=== PATIENT | male | born 1985 | race Native Hawaiian/Other Pacific Islander ===

== ENCOUNTER 2016-11-26 08:02 | Outpatient (CLI) | payer OTHER ==
[2016-11-26 08:30] LABS: POTASSIUM 4.1 mmol/L (3.6-5.2)
[2016-11-26 08:59] LABS: PLATELET COUNT 157 K/uL (142-355)
== END 2016-11-26 19:29 | disposition home or self-care (01) ==
LOC: LABW 08:02
PROVIDERS: Internal Medicine Nephrology
DX: I12.9 Hypertensive chronic kidney disease with stage 1 through stage 4 chronic kidney disease, or unspecified chronic kidney disease (principal); N18.3 Chronic kidney disease, stage 3 (moderate); N25.81 Secondary hyperparathyroidism of renal origin
CPT/HCPCS: 36415; 80053; 81000; 82306; 82570; 83970; 84100; 84155; 85027

== ENCOUNTER 2017-01-07 13:25 | Emergency (ER) | payer OTHER ==
[~2017-01-07] VITALS: Ht 172.7 cm; Wt 68.0 kg
[2017-01-07 14:29] VITALS: BP 149/75; TEMP 98.1
== END 2017-01-07 14:32 | disposition home or self-care (01) ==
LOC: ED 13:25
DX: L29.8 Other pruritus (principal); T36.1X5A Adverse effect of cephalosporins and other beta-lactam antibiotics, initial encounter; Y92.89 Other specified places as the place of occurrence of the external cause; X58.XXXA Exposure to other specified factors, initial encounter; Y93.89 Activity, other specified
CPT/HCPCS: 36415; 96374; 96375; 99284; J1200; J2780; J2930

== ENCOUNTER 2017-04-20 10:04 | Outpatient (CLI) | payer OTHER | END 2017-04-20 11:05 | disposition home or self-care (01) | LOC: RESP 10:04 | DX: R01.1 Cardiac murmur, unspecified (principal); I10 Essential (primary) hypertension; R94.31 Abnormal electrocardiogram [ECG] [EKG] | CPT/HCPCS: 93306 ==

== ENCOUNTER 2017-04-26 07:36 | Outpatient (CLI) | payer OTHER ==
[2017-04-26 08:07] LABS: PLATELET COUNT 150 K/uL (142-355)
[2017-04-26 08:14] LABS: POTASSIUM 4.4 mmol/L (3.6-5.2)
== END 2017-04-26 08:40 | disposition home or self-care (01) ==
LOC: LABW 07:36
PROVIDERS: Internal Medicine Nephrology
DX: I12.9 Hypertensive chronic kidney disease with stage 1 through stage 4 chronic kidney disease, or unspecified chronic kidney disease (principal); N18.3 Chronic kidney disease, stage 3 (moderate); E78.4 Other hyperlipidemia
CPT/HCPCS: 36415; 80053; 80061; 82570; 84155; 85027

== ENCOUNTER 2017-06-17 09:11 | Outpatient (CLI) | payer OTHER ==
[2017-06-17 09:28] LABS: PLATELET COUNT 146 K/uL (142-355)
[2017-06-17 09:38] LABS: POTASSIUM 4.6 mmol/L (3.6-5.2)
== END 2017-06-17 21:52 | disposition home or self-care (01) ==
LOC: LABW 09:11
PROVIDERS: Specialist
DX: Z01.810 Encounter for preprocedural cardiovascular examination (principal)
CPT/HCPCS: 36415; 80053; 85027

== ENCOUNTER 2017-08-24 08:21 | Outpatient (CLI) | payer OTHER ==
[2017-08-24 08:34] LABS: PLATELET COUNT 164 K/uL (142-355)
[2017-08-24 08:44] LABS: POTASSIUM 4.6 mmol/L (3.6-5.2)
== END 2017-08-24 19:07 | disposition home or self-care (01) ==
LOC: LABW 08:21
PROVIDERS: Internal Medicine Nephrology
DX: E11.65 Type 2 diabetes mellitus with hyperglycemia (principal); N18.3 Chronic kidney disease, stage 3 (moderate); I12.9 Hypertensive chronic kidney disease with stage 1 through stage 4 chronic kidney disease, or unspecified chronic kidney disease
CPT/HCPCS: 36415; 80053; 82570; 84155; 85027

== ENCOUNTER 2017-08-25 14:14 | Outpatient (CLI) | payer OTHER | END 2017-08-25 19:38 | disposition home or self-care (01) | LOC: RAD 14:14 | DX: M79.641 Pain in right hand (principal) ==

== ENCOUNTER 2017-12-25 09:14 | Inpatient (IN) | payer OTHER ==
[2017-12-25] VITALS (8 sets, daily range): BP systolic 126–156; BP diastolic 76–105; TEMP 98.1–98.2; Ht 162.6 cm; Wt 71.2 kg
[~2017-12-25] VITALS: Ht 162.6 cm; Wt 71.2 kg
[2017-12-25] MEDS ORDERED: LOVASTATIN20 MG OR (09:26)
[2017-12-25] MEDS ORDERED: COZAAR100 MG PO (09:26)
[2017-12-25] MEDS ORDERED: AMLODIPINE BESYLATE PO (09:27)
[2017-12-25] MEDS ORDERED: HUMALOG KW200 UNIT/M SC ×2 (09:28→09:29)
[2017-12-25] MEDS ORDERED: LANTUS100 MG/ML SC (09:30)
[2017-12-25 10:31] LABS: PLATELET COUNT 134 K/uL (142-355)
[2017-12-25 12:04] LABS: POTASSIUM 3.7 mmol/L (3.6-5.2)
[2017-12-25 23:21] LABS: POTASSIUM 4.3 mmol/L (3.6-5.2)
[2017-12-26] VITALS (8 sets, daily range): BP systolic 131–146; BP diastolic 42–93; TEMP 98–98.6
[2017-12-26 03:47] LABS: POTASSIUM 4.8 mmol/L (3.6-5.2)
[2017-12-26 06:45] LABS: PLATELET COUNT 130 K/uL (142-355)
[2017-12-26 06:59] LABS: POTASSIUM 3.9 mmol/L (3.6-5.2)
[2017-12-26 12:16] LABS: POTASSIUM 4.2 mmol/L (3.6-5.2)
[2017-12-27] VITALS: BP 114/70; TEMP 98.5
[2017-12-27 04:00] VITALS: BP 134/84; TEMP 97.9
[2017-12-27 06:37] LABS: PLATELET COUNT 136 K/uL (142-355)
[2017-12-27 06:48] LABS: POTASSIUM 3.7 mmol/L (3.6-5.2)
[2017-12-27 08:00] VITALS: BP 119/78; TEMP 98.3
[2017-12-27 12:00] VITALS: BP 137/82; TEMP 98.1
[2017-12-27 16:00] VITALS: BP 128/83; TEMP 98.2
[2017-12-27 20:00] VITALS: BP 139/94; TEMP 98.5
[2017-12-28] VITALS: BP 122/79; TEMP 98
[2017-12-28 04:00] VITALS: BP 124/82; TEMP 98.5
[2017-12-28 06:30] LABS: PLATELET COUNT 130 K/uL (142-355)
[2017-12-28 06:50] LABS: POTASSIUM 3.8 mmol/L (3.6-5.2)
[2017-12-28 08:00] VITALS: BP 151/95; TEMP 97.6
[2017-12-28 12:00] VITALS: BP 131/81; TEMP 98.3
== END 2017-12-28 15:40 | disposition home or self-care (01) | DRG 639 ==
LOC: ED 09:14 → MED/SURG 12:05 → ICU 12:05 → MED/SURG 12-26 14:00
DX: E10.10 Type 1 diabetes mellitus with ketoacidosis without coma (principal); R11.2 Nausea with vomiting, unspecified; E10.22 Type 1 diabetes mellitus with diabetic chronic kidney disease; N18.2 Chronic kidney disease, stage 2 (mild)
CPT/HCPCS: 36415; 74022; 80048; 80053; 81000; 81002; 82948; 83036; 83735; 84132; 84443; 85027; 96361; 96372; 96374; 96376; 99285; J1650; J1815; J2405; J3411; J3490

== ENCOUNTER 2018-03-03 08:28 | Outpatient (CLI) | payer OTHER ==
[~2018-03-03 08:28] MED LIST: AMLODIPINE BESYLATE PO; COZAAR100 MG PO; HUMALOG KW200 UNIT/M SC; LANTUS100 MG/ML SC; LOVASTATIN20 MG OR
[2018-03-03 09:00] LABS: PLATELET COUNT 147 K/uL (142-355)
[2018-03-03 09:43] LABS: POTASSIUM 4.4 mmol/L (3.6-5.2)
== END 2018-03-03 20:12 | disposition home or self-care (01) ==
LOC: LABW 08:28
PROVIDERS: Internal Medicine Nephrology
DX: N18.3 Chronic kidney disease, stage 3 (moderate) (principal)
CPT/HCPCS: 36415; 80053; 82570; 84155; 85027

== ENCOUNTER 2018-03-14 14:27 | Outpatient (CLI) | payer OTHER ==
[2018-03-14 14:46] LABS: PLATELET COUNT 163 K/uL (142-355)
[2018-03-14 15:30] LABS: POTASSIUM 4.7 mmol/L (3.6-5.2)
== END 2018-03-14 22:43 | disposition home or self-care (01) ==
LOC: LAB 14:27
PROVIDERS: Nurse Practitioner Family
DX: I10 Essential (primary) hypertension (principal); E10.22 Type 1 diabetes mellitus with diabetic chronic kidney disease; R53.83 Other fatigue; R53.81 Other malaise; Z79.899 Other long term (current) drug therapy; Z51.81 Encounter for therapeutic drug level monitoring
CPT/HCPCS: 80053; 80061; 83036; 84436; 84443; 85027

== ENCOUNTER 2018-08-03 07:04 | Outpatient (CLI) | payer OTHER ==
[2018-08-03 07:53] LABS: POTASSIUM 5.1 mmol/L (3.6-5.2)
[2018-08-03 07:59] LABS: PLATELET COUNT 145 K/uL (142-355)
== END 2018-08-03 20:11 | disposition home or self-care (01) ==
LOC: LABW 07:04
PROVIDERS: Internal Medicine Nephrology
DX: N13.8 Other obstructive and reflux uropathy (principal); E11.65 Type 2 diabetes mellitus with hyperglycemia; I10 Essential (primary) hypertension
CPT/HCPCS: 36415; 80053; 80061; 85027

== ENCOUNTER 2018-10-25 07:44 | Outpatient (CLI) | payer OTHER ==
[2018-10-25 08:02] LABS: PLATELET COUNT 176 K/uL (142-355)
[2018-10-25 08:15] LABS: POTASSIUM 4.5 mmol/L (3.6-5.2)
== END 2018-10-25 19:01 | disposition home or self-care (01) ==
LOC: LABW 07:44
PROVIDERS: Internal Medicine Nephrology
DX: N18.3 Chronic kidney disease, stage 3 (moderate) (principal); E11.65 Type 2 diabetes mellitus with hyperglycemia; I10 Essential (primary) hypertension
CPT/HCPCS: 36415; 80053; 80061; 82570; 84155; 85027

== ENCOUNTER 2018-11-15 07:47 | Outpatient (CLI) | payer OTHER | END 2018-11-15 23:10 | disposition home or self-care (01) | LOC: LABW 07:47 | PROVIDERS: Internal Medicine Endocrinology, Diabetes & Metabolism | DX: E10.65 Type 1 diabetes mellitus with hyperglycemia (principal); I10 Essential (primary) hypertension; E78.5 Hyperlipidemia, unspecified | CPT/HCPCS: 36415; 80061; 82947; 83519; 84681; 86341 ==

== ENCOUNTER 2019-02-16 07:19 | Outpatient (CLI) | payer OTHER ==
[2019-02-16 07:49] LABS: PLATELET COUNT 143 K/uL (142-355)
[2019-02-16 08:01] LABS: POTASSIUM 4.7 mmol/L (3.6-5.2)
== END 2019-02-16 20:45 | disposition home or self-care (01) ==
LOC: LABW 07:19
PROVIDERS: Internal Medicine Nephrology
DX: I12.9 Hypertensive chronic kidney disease with stage 1 through stage 4 chronic kidney disease, or unspecified chronic kidney disease (principal); N18.3 Chronic kidney disease, stage 3 (moderate); N25.81 Secondary hyperparathyroidism of renal origin; E78.49 Other hyperlipidemia; E56.8 Deficiency of other vitamins; E11.65 Type 2 diabetes mellitus with hyperglycemia
CPT/HCPCS: 36415; 80053; 82570; 83970; 84100; 84155; 85027

== ENCOUNTER 2019-06-10 17:18 | Emergency (ER) | payer OTHER ==
[~2019-06-10] VITALS: Ht 165.1 cm; Wt 69.4 kg
[2019-06-10 17:27] LABS: PLATELET COUNT 159 K/uL (142-355)
[2019-06-10 17:51] LABS: SODIUM 146 mmol/L (136-145)
[2019-06-10 19:50] VITALS: BP 172/106; TEMP 97.9
== END 2019-06-10 19:50 | disposition home or self-care (01) ==
LOC: ED 17:18
PROVIDERS: Emergency Medicine
DX: E11.649 Type 2 diabetes mellitus with hypoglycemia without coma (principal); Z79.4 Long term (current) use of insulin; E86.0 Dehydration; N18.3 Chronic kidney disease, stage 3 (moderate); D63.1 Anemia in chronic kidney disease
CPT/HCPCS: 36415; 80053; 80307; 81000; 82550; 82553; 82962; 84484; 85027; 93005; 96365; 96375; 99284; J7060

== ENCOUNTER 2019-06-29 07:57 | Outpatient (CLI) | payer OTHER ==
[2019-06-29 08:18] LABS: PLATELET COUNT 194 K/uL (142-355)
[2019-06-29 08:25] LABS: POTASSIUM 5.2 mmol/L (3.6-5.2)
== END 2019-06-29 23:16 | disposition home or self-care (01) ==
LOC: LABW 07:57
PROVIDERS: Internal Medicine Nephrology
DX: I12.9 Hypertensive chronic kidney disease with stage 1 through stage 4 chronic kidney disease, or unspecified chronic kidney disease (principal); N18.3 Chronic kidney disease, stage 3 (moderate); N18.4 Chronic kidney disease, stage 4 (severe); E11.21 Type 2 diabetes mellitus with diabetic nephropathy; E78.49 Other hyperlipidemia; N25.81 Secondary hyperparathyroidism of renal origin; E11.65 Type 2 diabetes mellitus with hyperglycemia; E56.8 Deficiency of other vitamins
CPT/HCPCS: 36415; 80053; 80061; 82570; 84100; 84155; 85027

== ENCOUNTER 2019-08-28 14:16 | Outpatient (CLI) | payer OTHER ==
[2019-08-28 14:32] LABS: PLATELET COUNT 139 K/uL (142-355)
[2019-08-28 14:47] LABS: POTASSIUM 5.2 mmol/L (3.6-5.2)
== END 2019-08-28 20:47 | disposition home or self-care (01) ==
LOC: LAB 14:16
PROVIDERS: Nurse Practitioner Family
DX: N18.9 Chronic kidney disease, unspecified (principal); D64.9 Anemia, unspecified; R53.81 Other malaise; R53.83 Other fatigue
CPT/HCPCS: 80053; 82728; 82746; 83540; 85027

== ENCOUNTER 2019-09-14 07:34 | Outpatient (CLI) | payer OTHER | END 2019-09-14 19:25 | disposition home or self-care (01) | LOC: LABW 07:34 | DX: E10.65 Type 1 diabetes mellitus with hyperglycemia (principal); I10 Essential (primary) hypertension; E78.5 Hyperlipidemia, unspecified; E66.3 Overweight | CPT/HCPCS: 36415; 82947 ==

== ENCOUNTER 2019-10-09 07:18 | Outpatient (CLI) | payer OTHER ==
[2019-10-09 08:13] LABS: POTASSIUM 4.9 mmol/L (3.6-5.2)
== END 2019-10-09 19:10 | disposition home or self-care (01) ==
LOC: LABW 07:18
PROVIDERS: Internal Medicine Nephrology
DX: E11.65 Type 2 diabetes mellitus with hyperglycemia (principal); E56.8 Deficiency of other vitamins; E78.5 Hyperlipidemia, unspecified; N25.81 Secondary hyperparathyroidism of renal origin; E11.21 Type 2 diabetes mellitus with diabetic nephropathy; N18.4 Chronic kidney disease, stage 4 (severe); I12.9 Hypertensive chronic kidney disease with stage 1 through stage 4 chronic kidney disease, or unspecified chronic kidney disease
CPT/HCPCS: 36415; 80053; 82652; 82728; 83550; 83735; 83970

== ENCOUNTER 2019-10-31 09:23 | Outpatient (CLI) | payer OTHER | END 2019-10-31 22:20 | disposition home or self-care (01) | LOC: US 09:23 | DX: R10.9 Unspecified abdominal pain (principal); N28.9 Disorder of kidney and ureter, unspecified ==

== ENCOUNTER 2019-11-02 09:16 | Outpatient (CLI) | payer OTHER | END 2019-11-02 19:38 | disposition home or self-care (01) | LOC: RAD 09:16 | DX: R07.81 Pleurodynia (principal) ==

== ENCOUNTER 2019-11-13 07:19 | Outpatient (CLI) | payer OTHER ==
[2019-11-13 07:51] LABS: POTASSIUM 5.1 mmol/L (3.6-5.2)
[2019-11-13 08:26] LABS: PLATELET COUNT 170 K/uL (142-355)
== END 2019-11-13 21:32 | disposition home or self-care (01) ==
LOC: LABW 07:19
PROVIDERS: Internal Medicine Nephrology
DX: E56.8 Deficiency of other vitamins (principal); E78.5 Hyperlipidemia, unspecified; N25.81 Secondary hyperparathyroidism of renal origin; E11.21 Type 2 diabetes mellitus with diabetic nephropathy; N18.4 Chronic kidney disease, stage 4 (severe); R80.9 Proteinuria, unspecified; I12.9 Hypertensive chronic kidney disease with stage 1 through stage 4 chronic kidney disease, or unspecified chronic kidney disease
CPT/HCPCS: 36415; 80053; 81000; 82043; 82570; 83735; 84155; 85027

== ENCOUNTER 2020-01-15 07:53 | Outpatient (CLI) | payer OTHER ==
[2020-01-15 08:27] LABS: PLATELET COUNT 157 K/uL (142-355)
== END 2020-01-15 20:07 | disposition home or self-care (01) ==
LOC: LABW 07:53
PROVIDERS: Internal Medicine Nephrology
DX: E78.5 Hyperlipidemia, unspecified (principal); N25.81 Secondary hyperparathyroidism of renal origin; E11.21 Type 2 diabetes mellitus with diabetic nephropathy; N18.4 Chronic kidney disease, stage 4 (severe); R80.9 Proteinuria, unspecified; I12.9 Hypertensive chronic kidney disease with stage 1 through stage 4 chronic kidney disease, or unspecified chronic kidney disease
CPT/HCPCS: 36415; 80069; 82306; 82728; 83540; 83550; 83970; 85027

== ENCOUNTER 2020-02-13 07:45 | Outpatient (CLI) | payer OTHER | END 2020-02-13 19:08 | disposition home or self-care (01) | LOC: LABW 07:45 | DX: E10.65 Type 1 diabetes mellitus with hyperglycemia (principal); I10 Essential (primary) hypertension; E78.5 Hyperlipidemia, unspecified | CPT/HCPCS: 36415; 82947; 83519; 84681; 86341 ==

== ENCOUNTER 2020-02-23 08:44 | Outpatient (CLI) | payer OTHER | END 2020-02-23 19:19 | disposition home or self-care (01) | LOC: US 08:44 | DX: Z01.818 Encounter for other preprocedural examination (principal); N18.6 End stage renal disease ==

== ENCOUNTER 2020-03-25 07:36 | Outpatient (CLI) | payer OTHER ==
[2020-03-25 08:04] LABS: PLATELET COUNT 161 K/uL (142-355)
[2020-03-25 09:21] LABS: POTASSIUM 5.4 mmol/L (3.6-5.2)
== END 2020-03-25 21:03 | disposition home or self-care (01) ==
LOC: LABW 07:36
PROVIDERS: Internal Medicine Nephrology
DX: E56.8 Deficiency of other vitamins (principal); E78.5 Hyperlipidemia, unspecified; E11.21 Type 2 diabetes mellitus with diabetic nephropathy; N18.4 Chronic kidney disease, stage 4 (severe)
CPT/HCPCS: 36415; 80053; 81000; 82043; 82306; 82570; 82728; 83540; 83970; 85027

== ENCOUNTER 2020-05-22 08:59 | Outpatient (CLI) | payer OTHER | END 2020-05-22 21:59 | disposition home or self-care (01) | LOC: LAB 08:59 | DX: N18.6 End stage renal disease (principal); Z11.59 Encounter for screening for other viral diseases | CPT/HCPCS: 87517; 87635; G2023; U0003 ==

== ENCOUNTER 2021-01-28 08:41 | Outpatient (CLI) | payer OTHER ==
[~2021-01-28] VITALS: Ht 30.5 cm; Wt 0.5 kg
== END 2021-01-28 19:44 | disposition home or self-care (01) ==
LOC: NM 08:41
PROVIDERS: ATTEND Nurse Practitioner
DX: Z01.810 Encounter for preprocedural cardiovascular examination (principal); Q24.8 Other specified congenital malformations of heart; I51.7 Cardiomegaly; E11.9 Type 2 diabetes mellitus without complications; N18.9 Chronic kidney disease, unspecified; E66.3 Overweight; I12.9 Hypertensive chronic kidney disease with stage 1 through stage 4 chronic kidney disease, or unspecified chronic kidney disease; I34.0 Nonrheumatic mitral (valve) insufficiency; E78.2 Mixed hyperlipidemia
CPT/HCPCS: A9500; J2785

== ENCOUNTER 2021-06-18 09:03 | Emergency (ER) | payer OTHER ==
[~2021-06-18] VITALS: Ht 182.9 cm; Wt 68.0 kg
[2021-06-18 09:03] VITALS: TEMP 98.3
[2021-06-18 09:41] LABS: PLATELET COUNT 181 K/uL (142-355)
[2021-06-18 10:14] LABS: POTASSIUM 3.7 mmol/L (3.6-5.2); SODIUM 146 mmol/L (136-145)
[2021-06-18 11:00] VITALS: BP 162/99
== END 2021-06-18 11:00 | disposition home or self-care (01) ==
LOC: ED 09:06
PROVIDERS: Family Medicine
DX: E11.649 Type 2 diabetes mellitus with hypoglycemia without coma (principal); Z79.4 Long term (current) use of insulin; N19 Unspecified kidney failure
CPT/HCPCS: 80053; 82553; 82948; 84484; 85027; 93005; 99283

== ENCOUNTER 2021-08-22 09:26 | Emergency (ER) | payer OTHER ==
[~2021-08-22] VITALS: Ht 167.6 cm; Wt 68.0 kg
[2021-08-22 09:27] VITALS: TEMP 98.3
[2021-08-22 09:57] LABS: PLATELET COUNT 136 K/uL (142-355)
[2021-08-22 10:10] LABS: PARTIAL THROMBOPLASTIN TIME 25.5 SECONDS (24.5-33.6)
[2021-08-22 10:17] LABS: POTASSIUM 3.3 mmol/L (3.6-5.2)
[2021-08-22 11:25] VITALS: BP 167/93
== END 2021-08-22 11:25 | disposition home or self-care (01) ==
LOC: ED 09:26
PROVIDERS: Hospitalist
DX: E11.649 Type 2 diabetes mellitus with hypoglycemia without coma (principal); Z79.4 Long term (current) use of insulin; N18.6 End stage renal disease; Z99.2 Dependence on renal dialysis; I10 Essential (primary) hypertension
CPT/HCPCS: 80053; 80320; 82550; 82948; 83880; 84484; 85027; 85610; 85730; 93005; 96374; 99284; J0360

== ENCOUNTER 2022-01-19 14:03 | Outpatient (CLI) | payer OTHER | END 2022-01-19 21:23 | disposition home or self-care (01) | LOC: LABW 14:03 | PROVIDERS: ATTEND Transplant Surgery | DX: Z01.818 Encounter for other preprocedural examination (principal); N18.6 End stage renal disease | CPT/HCPCS: 36415; 86900; 86901 ==

== ENCOUNTER 2022-03-23 15:35 | Outpatient (CLI) | payer OTHER | END 2022-03-23 19:53 | disposition home or self-care (01) | LOC: US 15:35 | PROVIDERS: ATTEND Internal Medicine | DX: L03.113 Cellulitis of right upper limb (principal) ==

== ENCOUNTER 2022-06-18 07:59 | Outpatient (CLI) | payer OTHER | END 2022-06-18 19:08 | disposition home or self-care (01) | LOC: NM 07:59 | PROVIDERS: ATTEND Internal Medicine Nephrology | DX: R11.2 Nausea with vomiting, unspecified (principal) | CPT/HCPCS: A9541 ==

== ENCOUNTER 2022-07-03 10:02 | Outpatient (CLI) | payer OTHER | END 2022-07-03 19:04 | disposition home or self-care (01) | LOC: RAD 10:02 | PROVIDERS: ATTEND Internal Medicine | DX: M79.672 Pain in left foot (principal); M25.572 Pain in left ankle and joints of left foot; I73.9 Peripheral vascular disease, unspecified ==

== ENCOUNTER 2022-07-27 09:37 | Outpatient (CLI) | payer OTHER | END 2022-07-27 19:32 | disposition home or self-care (01) | LOC: RAD 09:37 | PROVIDERS: ATTEND Internal Medicine Nephrology | DX: R68.89 Other general symptoms and signs (principal); J91.8 Pleural effusion in other conditions classified elsewhere ==

== ENCOUNTER 2022-08-03 19:10 | Emergency (ER) | payer OTHER ==
[~2022-08-03] VITALS: Ht 167.6 cm; Wt 72.6 kg
[2022-08-03 19:30] VITALS: TEMP 98.4
[2022-08-03 20:35] LABS: PLATELET COUNT 220 K/uL (142-355)
[2022-08-03 21:20] LABS: POTASSIUM 4.3 mmol/L (3.6-5.2)
[2022-08-03 22:30] VITALS: BP 166/72
== END 2022-08-03 22:30 | disposition home or self-care (01) ==
LOC: ED 19:10
PROVIDERS: Emergency Medicine Emergency Medical Services
DX: L03.116 Cellulitis of left lower limb (principal)
CPT/HCPCS: 36415; 80048; 85027; 96360; 96365; 96375; 99284; J0360; J3490

== ENCOUNTER 2022-08-08 06:54 | Emergency (ER) | payer OTHER ==
[~2022-08-08] VITALS: Ht 167.6 cm; Wt 67.8 kg
[2022-08-08 07:15] VITALS: TEMP 99.1
[2022-08-08 08:13] VITALS: BP 101/50
== END 2022-08-08 08:13 | disposition home or self-care (01) ==
LOC: ED 06:54
DX: L03.116 Cellulitis of left lower limb (principal)
CPT/HCPCS: 99282

== ENCOUNTER 2022-08-18 16:12 | Outpatient (CLI) | payer OTHER | END 2022-08-18 20:19 | disposition home or self-care (01) | LOC: LAB 16:12 | PROVIDERS: ATTEND Nurse Practitioner Family | DX: M10.9 Gout, unspecified (principal) | CPT/HCPCS: 84550 ==